=== PATIENT | male | born 1945 | race American Indian/Alaskan Native ===

== ENCOUNTER 2021-03-08 08:54 | Observation (INO) | payer MEDICARE ==
--- NOTE | 2021-03-08 09:31 | XRay Report ---
CHEST 1 VIEW 03/08/2021 8:22 AM INDICATION / CLINICAL INFORMATION: Dyspnea. COMPARISON: 12/27/2020 FINDINGS: SUPPORT DEVICES: None. HEART / MEDIASTINUM: Stable. LUNGS / PLEURA: There is increasing size and number of pulmonary nodules/masses in the right lung. Th ere is a stable small right pleural effusion. No pneumothorax. ADDITIONAL FINDINGS: No significant additional findings. IMPRESSION: 1. Increasing size and number of masses/nodules in the right lung. Signer Name: Mina Reza MD Signed: 03/08/2021 9:26 AM Workstation Name: [id number]
[2021-03-08 09:48] LABS: Basophils % (Auto) 0.3 % (0.0-1.8); Eosinophils % (Auto) 1.5 % (0.0-4.3); Hematocrit 25.9 % (35.5-45.6); Lymphocytes # (Auto) 0.9 K/mm3 (1.2-5.4); Lymphocytes % (Auto) 27.5 % (13.4-35.0); Mean Corpuscular HGB Conc 35 % (32-34); Mean Corpuscular Volume 96 fl (84-94); Monocytes # (Auto) 0.3 K/mm3 (0.0-0.8); Monocytes % (Auto) 9.6 % (0.0-7.3); Red Blood Count 2.68 M/mm3 (3.65-5.03); Red Cell Distribution Width 18.2 % (13.2-15.2)
[2021-03-08 09:54] LABS: Platelet Count 93 K/mm3 (140-440)
[2021-03-08 09:59] LABS: INR 1.27 (0.87-1.13)
[2021-03-08 10:14] LABS: Alanine Aminotransferase 9 units/L (7-56); BUN/Creatinine Ratio 14; Blood Urea Nitrogen 30 mg/dL (9-20); Calcium 8.5 mg/dL (8.4-10.2); Hemolysis Index 4
[2021-03-08] MEDS ORDERED: amLODIPine 10 MG TAB PO STA (10:19)
[2021-03-08] MEDS ORDERED: ASPIRIN EC 81 MG TAB PO STA (10:19)
[2021-03-08] MEDS ORDERED: hydrALAZINE 25 MG TAB PO STA (10:19)
[2021-03-08] MEDS ORDERED: carvediloL 6.25 MG TAB PO STA (10:19)
[2021-03-08] MEDS ORDERED: ALBUTEROL 2.5 MG/3 ML NEBU IH ONE (10:20)
[2021-03-08] MEDS ORDERED: IPRATROPIUM 0.02% NEBU 2.5 ML IH ONE (10:20)
[2021-03-08] MEDS ORDERED: methylPREDNISolone Sod Succinate 125 MG/2 ML INJ IV ONE (10:20)
[2021-03-08] MEDS ORDERED: FUROSEMIDE 40 MG/4 ML INJ IV ONE (10:22)
[2021-03-08] MEDS ORDERED: ASPIRIN 81 MG TAB CHEW PO ONE (10:24)
--- NOTE | 2021-03-08 10:24 | Emergency Department Report ---
ED General Adult HPI - General Chief complaint: Dyspnea/Respdistress Stated complaint: JOHN PUI?: No Time Seen by Provider: 03/08/21 08:58 Source: patient, EMS (Verbal report received from emergency medical services. EMS documentation not available at time of chart dictation ), RN notes reviewed, old records reviewed Mode of arrival: Stretcher Limitations: Physical Limitation - History of Present Illness Initial comments: The patient is a 76-year-old gentleman. His past medical history includes congestive heart failure, EF of 10 to 50%, COPD, hypertension, HIV, prostate cancer. As per review of recent documentation, from December of this year, he is on home oxygen. The patient presents to the ER today with complaints of shortness of breath, lower extremity swelling. He denies headache, neck pain, chest pain, abdominal pain. The patient denies Covid symptomatology. He has not received a Covid vaccination. He endorses black stool. He does not take blood thinning medications. This patient presented with very similar symptoms in December of this year. At that time, he had a lower extremity DVT study which was negative for DVT, and nuclear medicine study which was negative/low probability for pulmonary embolism, a cardiac stress test which was negative for ischemia, and demonstrated cardiomyopathy. The patient was ruled out for COVID-19, was found to have elevated troponin, elevated proBNP, and renal insufficiency with a creatinine of 2.2. The patient endorses compliance with his medications. He was also found to have tricuspid regurg, pulmonary hypertension, anemia, thrombocytopenia, as well as renal insufficiency. He was discharged with Aldactone, Norvasc, hydralazine, carvedilol, aspirin, Lasix, and isosorbide. -: Gradual, days(s) (Patient reports symptoms started yesterday) Location: left, right, lower extremity Consistency: constant Improves with: rest Worsens with: movement - Related Data Home Medications Medication Instructions Recorded Confirmed Last Taken Albuterol Mdi (or & Nicu Only) 2 puff PO Q3HR PRN 03/08/21 03/08/21 Unknown [ProAir HFA Inhaler] AtorvaSTATin [Lipitor] 40 mg PO QHS 03/08/21 03/08/21 Unknown Bictegrav/Emtricit/Tenofov Ala 1 tab PO DAILY 03/08/21 03/08/21 Unknown [Biktarvy 50-200-25 mg (Nf)] Dolutegravir [Tivicay] 1 tab PO DAILY 03/08/21 03/08/21 Unknown lamiVUDine [Epivir] 300 mg PO QDAY 03/08/21 03/08/21 Unknown Previous Rx's Medication Instructions Recorded Last Taken Type Aspirin EC [Halfprin EC] 81 mg PO DAILY #60 tablet 12/31/20 Unknown Rx Furosemide [Lasix TAB] 60 mg PO QDAY #30 tablet 12/31/20 Unknown Rx Isosorbide Dinitrate [Isordil] 20 mg PO Q8HR #90 tablet 12/31/20 Unknown Rx Spironolactone [Aldactone] 25 mg PO QDAY #30 tablet 12/31/20 Unknown Rx amLODIPine 10 mg PO DAILY #30 tablet 12/31/20 Unknown Rx carvediloL [Coreg] 6.25 mg PO BID #60 tablet 12/31/20 Unknown Rx hydrALAZINE [Apresoline TAB] 25 mg PO Q8HR #90 tablet 12/31/20 Unknown Rx Allergies Allergy/AdvReac Type Severity Reaction Status Date / Time No Known Allergies Allergy Unverified 12/26/20 09:44 ED Review of Systems ROS: Stated complaint: JOHN Other details as noted in HPI Constitutional: malaise, weakness, other (Denies loss of taste and smell) Eyes: denies: eye discharge ENT: congestion Respiratory: shortness of breath, SOB with exertion, SOB at rest. denies: cough Cardiovascular: as per HPI, edema. denies: chest pain Gastrointestinal: denies: abdominal pain, nausea, vomiting Genitourinary: denies: dysuria Musculoskeletal: myalgia Neurological: weakness Hematological/Lymphatic: denies: easy bleeding ED Past Medical Hx - Social History Smoking Status: Current Every Day Smoker - Medications Home Medications: Home Medications Medication Instructions Recorded Confirmed Last Taken Type Aspirin EC [Halfprin EC] 81 mg PO DAILY #60 tablet 12/31/20 Unknown Rx Furosemide [Lasix TAB] 60 mg PO QDAY #30 tablet 12/31/20 Unknown Rx Isosorbide Dinitrate [Isordil] 20 mg PO Q8HR #90 tablet 12/31/20 Unknown Rx Spironolactone [Aldactone] 25 mg PO QDAY #30 tablet 12/31/20 Unknown Rx amLODIPine 10 mg PO DAILY #30 tablet 12/31/20 Unknown Rx carvediloL [Coreg] 6.25 mg PO BID #60 tablet 12/31/20 Unknown Rx hydrALAZINE [Apresoline TAB] 25 mg PO Q8HR #90 tablet 12/31/20 Unknown Rx Albuterol Mdi (or & Nicu Only) 2 puff PO Q3HR PRN 03/08/21 03/08/21 Unknown History [ProAir HFA Inhaler] AtorvaSTATin [Lipitor] 40 mg PO QHS 03/08/21 03/08/21 Unknown History Bictegrav/Emtricit/Tenofov Ala 1 tab PO DAILY 03/08/21 03/08/21 Unknown History [Biktarvy 50-200-25 mg (Nf)] Dolutegravir [Tivicay] 1 tab PO DAILY 03/08/21 03/08/21 Unknown History lamiVUDine [Epivir] 300 mg PO QDAY 03/08/21 03/08/21 Unknown History ED Physical Exam - General Limitations: Physical Limitation General appearance: alert, in no apparent distress - Head Head exam: Present: atraumatic, normocephalic - Eye Eye exam: Present: normal appearance, EOMI. Absent: nystagmus - ENT ENT exam: Present: normal exam, normal orophraynx, mucous membranes moist, normal external ear exam - Neck Neck exam: Present: normal inspection, full ROM. Absent: tenderness, meningismus - Respiratory Respiratory exam: Present: rales, rhonchi. Absent: stridor - Cardiovascular Cardiovascular Exam: Present: regular rate, normal rhythm, normal heart sounds, JVD. Absent: bradycardia, tachycardia, irregular rhythm, systolic murmur, diastolic murmur, rubs, gallop - GI/Abdominal GI/Abdominal exam: Present: soft. Absent: distended, tenderness, guarding, rebound, rigid, pulsatile mass - Rectal Rectal exam: Present: normal inspection, normal rectal tone, heme (-) stool, other (Chaperoned by Tequila Bailey) - Extremities Exam Extremities exam: Present: normal inspection, full ROM, pedal edema (3+ edema in the bilateral lower extremities), other (2+ pulses noted in the bilateral upper and lower extremities. There is no palpable cord. negative Homans sign. Muscular compartments are soft. The pelvis is stable.). Absent: calf tenderness - Back Exam Back exam: Present: normal inspection, full ROM. Absent: tenderness, CVA tenderness (R), CVA tenderness (L), paraspinal tenderness, vertebral tenderness - Neurological Exam Neurological exam: Present: alert, other (No facial droop. Tongue midline. Extraocular movements intact bilaterally. Facial sensation intact to light t ouch in V1, V2, V3 distribution bilaterally. 5 and a 5 strength in 4 extremities. Sensation intact to light touch in 4 extremities.) - Psychiatric Psychiatric exam: Present: normal affect, normal mood - Skin Skin exam: Present: warm, dry, intact, normal color. Absent: rash ED Course Vital Signs 03/08/21 03/08/21 03/08/21 09:08 09:15 09:30 Temperature 97.7 F Pulse Rate 96 H 97 H 93 H Respiratory 23 27 H 23 Rate Blood Pressure 157/89 Blood Pressure 157/89 [Right] O2 Sat by Pulse 93 93 93 Oximetry 03/08/21 03/08/21 03/08/21 09:31 09:45 10:01 Temperature Pulse Rate 100 H 101 H 114 H Respiratory 24 25 H 35 H Rate Blood Pressure 157/89 157/89 208/128 Blood Pressure [Right] O2 Sat by Pulse 95 93 92 Oximetry - Reevaluation(s) Reevaluation #1: 03/08/21 10:49 Pulmonary nodules reviewed and appreciated. We will defer to the inpatient team for further work-up and evaluate these. Do not have a high suspicion for Covid at this time. ED Medical Decision Making - Lab Data Result diagrams: 03/08/21 09:17 03/08/21 09:17 Vital Signs 03/08/21 03/08/21 03/08/21 09:08 09:15 09:30 Temperature 97.7 F Pulse Rate 96 H 97 H 93 H Respiratory 23 27 H 23 Rate Blood Pressure 157/89 Blood Pressure 157/89 [Right] O2 Sat by Pulse 93 93 93 Oximetry 03/08/21 03/08/21 03/08/21 09:31 09:45 10:01 Temperature Pulse Rate 100 H 101 H 114 H Respiratory 24 25 H 35 H Rate Blood Pressure 157/89 157/89 208/128 Blood Pressure [Right] O2 Sat by Pulse 95 93 92 Oximetry Lab Results 03/08/21 03/08/21 03/08/21 Range/Units 09:17 09:17 09:17 WBC 3.1 L (4.5-11.0) K/mm3 RBC 2.68 L (3.65-5.03) M/mm3 Hgb 9.0 L (11.8-15.2) gm/dl Hct 25.9 L (35.5-45.6) % MCV 96 H (84-94) fl MCH 33 H (28-32) pg MCHC 35 H (32-34) % RDW 18.2 H (13.2-15.2) % Plt Count 93 L (140-440) K/mm3 Lymph % (Auto) 27.5 (13.4-35.0) % [place] % (Auto) 9.6 H (0.0-7.3) % Eos % (Auto) 1.5 (0.0-4.3) % Baso % (Auto) 0.3 (0.0-1.8) % Lymph # (Auto) 0.9 L (1.2-5.4) K/mm3 [place] # (Auto) 0.3 (0.0-0.8) K/mm3 Eos # (Auto) 0.0 (0.0-0.4) K/mm3 Baso # (Auto) 0.0 (0.0-0.1) K/mm3 Seg Neutrophils % 61.1 (40.0-70.0) % Seg Neutrophils # 1.9 (1.8-7.7) K/mm3 PT 16.4 H (12.2-14.9) Sec. INR 1.27 H (0.87-1.13) Sodium 139 (137-145) mmol/L Potassium 4.5 (3.6-5.0) mmol/L Chloride 108.6 H (98-107) mmol/L Carbon Dioxide 20 L (22-30) mmol/L Anion Gap 15 mmol/L BUN 30 H (9-20) mg/dL Creatinine 2.1 H (0.8-1.3) mg/dL Estimated GFR 38 ml/min BUN/Creatinine Ratio 14 % Glucose 108 H (75-100) mg/dL Lactic Acid (0.7-2.0) mmol/L Calcium 8.5 (8.4-10.2) mg/dL Magnesium 1.90 (1.7-2.3) mg/dL Total Bilirubin 0.50 (0.1-1.2) mg/dL AST 24 (5-40) units/L ALT 9 (7-56) units/L Alkaline Phosphatase 93 (35-129) units/L Total Creatine Kinase 125 (55-170) units/L Troponin T 0.127 H* (0.00-0.029) ng/mL Total Protein 6.4 (6.3-8.2) g/dL Albumin 3.0 L (3.9-5) g/dL Albumin/Globulin Ratio 0.9 % Triglycerides 86 (2-149) mg/dL Cholesterol 137 (50-199) mg/dL LDL Cholesterol Direct 81 (50-130) mg/dL HDL Cholesterol 40 (40-59) mg/dL Cholesterol/HDL Ratio 3.42 % /02/21 Range/Units 09:17 WBC (4.5-11.0) K/mm3 RBC (3.65-5.03) M/mm3 Hgb (11.8-15.2) gm/dl Hct (35.5-45.6) % MCV (84-94) fl MCH (28-32) pg MCHC (32-34) % RDW (13.2-15.2) % Plt Count (140-440) K/mm3 Lymph % (Auto) (13.4-35.0) % [place] % (Auto) (0.0-7.3) % Eos % (Auto) (0.0-4.3) % Baso % (Auto) (0.0-1.8) % Lymph # (Auto) (1.2-5.4) K/mm3 [place] # (Auto) (0.0-0.8) K/mm3 Eos # (Auto) (0.0-0.4) K/mm3 Baso # (Auto) (0.0-0.1) K/mm3 Seg Neutrophils % (40.0-70.0) % Seg Neutrophils # (1.8-7.7) K/mm3 PT (12.2-14.9) Sec. INR (0.87-1.13) Sodium (137-145) mmol/L Potassium (3.6-5.0) mmol/L Chloride (98-107) mmol/L Carbon Dioxide (22-30) mmol/L Anion Gap mmol/L BUN (9-20) mg/dL Creatinine (0.8-1.3) mg/dL Estimated GFR ml/min BUN/Creatinine Ratio % Glucose (75-100) mg/dL Lactic Acid 1.30 (0.7-2.0) mmol/L Calcium (8.4-10.2) mg/dL Magnesium (1.7-2.3) mg/dL Total Bilirubin (0.1-1.2) mg/dL AST (5-40) units/L ALT (7-56) units/L Alkaline Phosphatase (35-129) units/L Total Creatine Kinase (55-170) units/L Troponin T (0.00-0.029) ng/mL Total Protein (6.3-8.2) g/dL Albumin (3.9-5) g/dL Albumin/Globulin Ratio % Triglycerides (2-149) mg/dL Cholesterol (50-199) mg/dL LDL Cholesterol Direct (50-130) mg/dL HDL Cholesterol (40-59) mg/dL Cholesterol/HDL Ratio % - EKG Data -: EKG Interpreted by De EKG shows normal: sinus rhythm Rate: normal - EKG Data 03/08/21 10:43 The EKG today is interpreted at 09: 30 3 AM Sinus rhythm, 99 bpm, with a normal P wave axis, and a normal axis. QTC prolonged, poor R wave progression, PVC. Motion artifact. Abnormal EKG. Not a STEMI. Unchanged from prior EKG 12/26/2020 - Radiology Data Radiology results: pending, report reviewed, image reviewed CHEST 1 VIEW 03/08/2021 8:22 AM INDICATION / CLINICAL INFORMATION: Dyspnea. COMPARISON: 12/27/2020 FINDINGS: SUPPORT DEVICES: None. HEART / MEDIASTINUM: Stable. LUNGS / PLEURA: There is increasing size and number of pulmonary nodules/masses in the right lung. There is a stable small right pleural effusion. No pneumothorax. ADDITIONAL FINDINGS: No significant additional findings. IMPRESSION: 1. Increasing size and number of masses/nodules in the right lung. Signer Name: Mina Reza MD Signed: 03/08/2021 8:26 AM Workstation Name: [id number] - Medical Decision Making Differential diagnosis, including but not limited to: CHF exacerbation, COPD exacerbation, pulmonary hypertension, cardiorenal syndrome, hypertensive cardiomyopathy, hypertensive urgency Assessment and plan: 76-year-old gentleman, presenting with shortness of breath, lower extremity edema, JVD, market hypertension, likely presenting with decompensated exacerbation of his chronic medical issues. Place patient on monitor, administer supplemental oxygen, titrate to O2 sat greater than 92%, start high-dose albuterol, Atrovent, steroids, Lasix, continue home medications. Elevated troponin is chronic. This is likely a type II troponin leak. Anemia at baseline, as is thrombocytopenia. There may be a component of anemia and thrombocytopenia secondary to chronic renal insufficiency, anemia of chronic disease, or underlying HIV. Patient meets criteria for admission and hospitalization secondary to the aforementioned. Hospital physician, Dr. Casie Burrell to admit to IMS On rectal examination, stool is brown, and is guaiac negative. Critical Care Time: Yes Critical care time in (mins) excluding proc time.: 35 Critical care attestation.: If time is entered above; I have spent that time in minutes in the direct care of this critically ill patient, excluding procedure time. ED Disposition Clinical Impression: CHF exacerbation, COPD exacerbation, Shortness of breath, Renal insufficiency, Hypertensive urgency Disposition: 09 OP ADMIT IP TO THIS HOSP Is pt being admited?: Yes Does the pt Need Aspirin: Yes Condition: Good Instructions: Chronic Obstructive Pulmonary Disease (ED)
[2021-03-08] MEDS ORDERED: SPIRONOLACTONE 25 MG TAB PO SCH (10:30)
[2021-03-08 10:41] LABS: Chol/HDL Ratio 3.42 %; HDL Cholesterol 40 mg/dL (40-59); LDL Cholesterol,Direct 81 mg/dL (50-130)
[2021-03-08] MEDS ORDERED: ALBUTEROL 8.5 GM MDI INHALATION IH PRN (16:05)
[2021-03-08] MEDS ORDERED: MORPHINE 2 MG/1 ML INJ IV PRN (16:29)
[2021-03-08] MEDS ORDERED: METOCLOPRAMIDE 10 MG/2 ML INJ IV PRN (16:29)
[2021-03-08] MEDS ORDERED: HYDROmorphone 1 MG/1 ML INJ IV PRN (16:29)
[2021-03-08] MEDS ORDERED: ONDANSETRON 4 MG/2 ML INJ IV PRN (16:29)
[2021-03-08] MEDS ORDERED: ACETAMINOPHEN 325 MG TAB PO PRN (16:29)
[2021-03-08] MEDS ORDERED: oxyCODONE /ACETAMINOPHEN 5-325MG TAB PO PRN (16:29)
[2021-03-08] MEDS ORDERED: NON-FORMULARY EACH (Bictegrav/Emtricit/Tenofov Ala 1 EACH Tablet) PO SCH (16:30)
[2021-03-08] MEDS ORDERED: LAMIVUDINE 300 MG PO SCH (16:30)
--- NOTE | 2021-03-08 16:44 | History and Physical Report ---
History of Present Illness Date of examination: 03/08/21 Date of admission: 03/08/21 10:48 History of present illness: - History of Present Illness Initial comments: The patient is a 76-year-old gentleman. His past medical history includes congestive heart failure, EF of 10 to 50%, COPD, hypertension, HIV, prostate cancer. As per review of recent documentation, from December of this year, he is on home oxygen. The patient presents to the ER today with complaints of shortness of breath, lower extremity swelling. He denies headache, neck pain, chest pain, abdominal pain. The patient denies Covid symptomatology. He has not received a Covid vaccination. He endorses black stool. He does not take blood thinning medications. This patient presented with very similar symptoms in December of this year. At that time, he had a lower extremity DVT study which was negative for DVT, and nuclear medicine study which was negative/low probability for pulmonary embolism, a cardiac stress test which was negative for ischemia, and demonstrated cardiomyopathy. The patient was ruled out for COVID-19, was found to have elevated troponin, elevated proBNP, and renal insufficiency with a creatinine of 2.2. The patient endorses compliance with his medications. He was also found to have tricuspid regurg, pulmonary hypertension, anemia, thrombocytopenia, as well as renal insufficiency. He was discharged with Aldactone, Norvasc, hydralazine, carvedilol, aspirin, Lasix, and isosorbide. -: Gradual, days(s) (Patient reports symptoms started yesterday) Location: left, right, lower extremity Consistency: constant Improves with: rest Worsens with: movement - Related Data Home Medications Medication Instructions Recorded Confirmed Last Taken Albuterol Mdi (or & Nicu Only) 2 puff PO Q3HR PRN 03/08/21 03/08/21 Unknown [ProAir HFA Inhaler] AtorvaSTATin [Lipitor] 40 mg PO QHS 03/08/21 03/08/21 Unknown Bictegrav/Emtricit/Tenofov Ala 1 tab PO DAILY 03/08/21 03/08/21 Unknown [Biktarvy 50-200-25 mg (Nf)] Dolutegravir [Tivicay] 1 tab PO DAILY 03/08/21 03/08/21 Unknown lamiVUDine [Epivir] 300 mg PO QDAY 03/08/21 03/08/21 Unknown Previous Rx's Medication Instructions Recorded Last Taken Type Aspirin EC [Halfprin EC] 81 mg PO DAILY #60 tablet 12/31/20 Unknown Rx Furosemide [Lasix TAB] 60 mg PO QDAY #30 tablet 12/31/20 Unknown Rx Isosorbide Dinitrate [Isordil] 20 mg PO Q8HR #90 tablet 12/31/20 Unknown Rx Spironolactone [Aldactone] 25 mg PO QDAY #30 tablet 12/31/20 Unknown Rx amLODIPine 10 mg PO DAILY #30 tablet 12/31/20 Unknown Rx carvediloL [Coreg] 6.25 mg PO BID #60 tablet 12/31/20 Unknown Rx hydrALAZINE [Apresoline TAB] 25 mg PO Q8HR #90 tablet 12/31/20 Unknown Rx Allergies Allergy/AdvReac Type Severity Reaction Status Date / Time No Known Allergies Allergy Unverified 12/26/20 09:44 ED Review of Systems ROS: Stated complaint: JOHN Other details as noted in HPI Constitutional: malaise, weakness, other (Denies loss of taste and smell) Eyes: denies: eye discharge ENT: congestion Respiratory: shortness of breath, SOB with exertion, SOB at rest. denies: cough Cardiovascular: as per HPI, edema. denies: chest pain Gastrointestinal: denies: abdominal pain, nausea, vomiting Genitourinary: denies: dysuria Musculoskeletal: myalgia Neurological: weakness Hematological/Lymphatic: denies: easy bleeding ED Past Medical Hx - Social History Smoking Status: Current Every Day Smoker - Medications Home Medications: Home Medications Medication Instructions Recorded Confirmed Last Taken Type Aspirin EC [Halfprin EC] 81 mg PO DAILY #60 tablet 12/31/20 Unknown Rx Furosemide [Lasix TAB] 60 mg PO QDAY #30 tablet 12/31/20 Unknown Rx Isosorbide Dinitrate [Isordil] 20 mg PO Q8HR #90 tablet 12/31/20 Unknown Rx Spironolactone [Aldactone] 25 mg PO QDAY #30 tablet 12/31/20 Unknown Rx amLODIPine 10 mg PO DAILY #30 tablet 12/31/20 Unknown Rx carvediloL [Coreg] 6.25 mg PO BID #60 tablet 12/31/20 Unknown Rx hydrALAZINE [Apresoline TAB] 25 mg PO Q8HR #90 tablet 12/31/20 Unknown Rx Albuterol Mdi (or & Nicu Only) 2 puff PO Q3HR PRN 03/08/21 03/08/21 Unknown History [ProAir HFA Inhaler] AtorvaSTATin [Lipitor] 40 mg PO QHS 03/08/21 03/08/21 Unknown History Bictegrav/Emtricit/Tenofov Ala 1 tab PO DAILY 03/08/21 03/08/21 Unknown History [Biktarvy 50-200-25 mg (Nf)] Dolutegravir [Tivicay] 1 tab PO DAILY 03/08/21 03/08/21 Unknown History lamiVUDine [Epivir] 300 mg PO QDAY 03/08/21 03/08/21 Unknown History Medications and Allergies Allergies Allergy/AdvReac Type Severity Reaction Status Date / Time No Known Allergies Allergy Unverified 12/26/20 09:44 Home Medications Medication Instructions Recorded Confirmed Last Taken Type Aspirin EC [Halfprin EC] 81 mg PO DAILY #60 tablet 12/31/20 03/08/21 Unknown Rx Furosemide [Lasix TAB] 60 mg PO QDAY #30 tablet 12/31/20 03/08/21 Unknown Rx Isosorbide Dinitrate [Isordil] 20 mg PO Q8HR #90 tablet 12/31/20 03/08/21 Unknown Rx Spironolactone [Aldactone] 25 mg PO QDAY #30 tablet 12/31/20 03/08/21 Unknown Rx amLODIPine 10 mg PO DAILY #30 tablet 12/31/20 03/08/21 Unknown Rx carvediloL [Coreg] 6.25 mg PO BID #60 tablet 12/31/20 03/08/21 Unknown Rx hydrALAZINE [Apresoline TAB] 25 mg PO Q8HR #90 tablet 12/31/20 03/08/21 Unknown Rx Albuterol Mdi (or & Nicu Only) 2 puff PO Q3HR PRN 03/08/21 03/08/21 Unknown History [ProAir HFA Inhaler] AtorvaSTATin [Lipitor] 40 mg PO QHS 03/08/21 03/08/21 Unknown History Bictegrav/Emtricit/Tenofov Ala 1 tab PO DAILY 03/08/21 03/08/21 Unknown History [Biktarvy 50-200-25 mg (Nf)] Dolutegravir [Tivicay] 1 tab PO DAILY 03/08/21 03/08/21 Unknown History lamiVUDine [Epivir] 300 mg PO QDAY 03/08/21 03/08/21 Unknown History Active Meds: Active Medications Albuterol (Albuterol 8.5 Gm Mdi Inhalation) 2 puff IH Q3HR PRN PRN Reason: Shortness Of Breath Atorvastatin Calcium (Atorvastatin 40 Mg Tab) 40 mg PO QHS POLO Furosemide (Furosemide 40 Mg Tab) 60 mg PO QDAY POLO Isosorbide Dinitrate (Isosorbide Dinitrate 20 Mg Tab) 20 mg PO Q8HR POLO Miscellaneous Medication (Bictegrav/Emtricit/Tenofov Ala) 1 tab PO DAILY POLO Miscellaneous Medication (Lamivudine [Epivir]) 300 mg PO QDAY POLO Exam - Constitutional Vitals: Temp Pulse Resp BP Pulse Ox 97.7 F 93 H 15 154/93 99 03/08/21 09:30 03/08/21 12:45 03/08/21 12:45 03/08/21 12:45 03/08/21 16:09 HEART Score - HEART Score Troponin: Troponin T 0.127 ng/mL (0.00-0.029) H* 03/08/21 09:17 Results - Labs CBC & Chem 7: 03/09/21 05:29 03/09/21 05:29 Labs: Laboratory Last Values WBC 3.1 K/mm3 (4.5-11.0) L 03/08/21 09:17 RBC 2.68 M/mm3 (3.65-5.03) L 03/08/21 09:17 Hgb 9.0 gm/dl (11.8-15.2) L 03/08/21 09:17 Hct 25.9 % (35.5-45.6) L 03/08/21 09:17 MCV 96 fl (84-94) H 03/08/21 09:17 MCH 33 pg (28-32) H 03/08/21 09:17 MCHC 35 % (32-34) H 03/08/21 09:17 RDW 18.2 % (13.2-15.2) H 03/08/21 09:17 Plt Count 93 K/mm3 (140-440) L 03/08/21 09:17 Lymph % (Auto) 27.5 % (13.4-35.0) 03/08/21 09:17 [place] % (Auto) 9.6 % (0.0-7.3) H 03/08/21 09:17 Eos % (Auto) 1.5 % (0.0-4.3) 03/08/21 09:17 Baso % (Auto) 0.3 % (0.0-1.8) 03/08/21 09:17 Lymph # (Auto) 0.9 K/mm3 (1.2-5.4) L 03/08/21 09:17 [place] # (Auto) 0.3 K/mm3 (0.0-0.8) 03/08/21 09:17 Eos # (Auto) 0.0 K/mm3 (0.0-0.4) 03/08/21 09:17 Baso # (Auto) 0.0 K/mm3 (0.0-0.1) 03/08/21 09:17 Seg Neutrophils % 61.1 % (40.0-70.0) 03/08/21 09:17 Seg Neutrophils # 1.9 K/mm3 (1.8-7.7) 03/08/21 09:17 PT 16.4 Sec. (12.2-14.9) H 03/08/21 09:17 INR 1.27 (0.87-1.13) H 03/08/21 09:17 Sodium 139 mmol/L (137-145) 03/08/21 09:17 Potassium 4.5 mmol/L (3.6-5.0) 03/08/21 09:17 Chloride 108.6 mmol/L (98-107) H 03/08/21 09:17 Carbon Dioxide 20 mmol/L (22-30) L 03/08/21 09:17 Anion Gap 15 mmol/L 03/08/21 09:17 BUN 30 mg/dL (9-20) H 03/08/21 09:17 Creatinine 2.1 mg/dL (0.8-1.3) H 03/08/21 09:17 Estimated GFR 38 ml/min 03/08/21 09:17 BUN/Creatinine Ratio 14 % 03/08/21 09:17 Glucose 108 mg/dL (75-100) H 03/08/21 09:17 Lactic Acid 1.30 mmol/L (0.7-2.0) 03/08/21 09:17 Calcium 8.5 mg/dL (8.4-10.2) 03/08/21 09:17 Magnesium 1.90 mg/dL (1.7-2.3) 03/08/21 09:17 Total Bilirubin 0.50 mg/dL (0.1-1.2) 03/08/21 09:17 AST 24 units/L (5-40) 03/08/21 09:17 ALT 9 units/L (7-56) 03/08/21 09:17 Alkaline Phosphatase 93 units/L (35-129) 03/08/21 09:17 Total Creatine Kinase 125 units/L (55-170) 03/08/21 09:17 Troponin T 0.127 ng/mL (0.00-0.029) H* 03/08/21 09:17 NT-Pro-B Natriuret Pep > 97245 pg/mL (0-900) H 03/08/21 09:17 Total Protein 6.4 g/dL (6.3-8.2) 03/08/21 09:17 Albumin 3.0 g/dL (3.9-5) L 03/08/21 09:17 Albumin/Globulin Ratio 0.9 % 03/08/21 09:17 Triglycerides 86 mg/dL (2-149) 03/08/21 09:17 Cholesterol 137 mg/dL (50-199) 03/08/21 09:17 LDL Cholesterol Direct 81 mg/dL (50-130) 03/08/21 09:17 HDL Cholesterol 40 mg/dL (40-59) 03/08/21 09:17 Cholesterol/HDL Ratio 3.42 % 03/08/21 09:17 - Imaging and Cardiology Imaging and Cardiology: Chest x-ray Increasing size and number of masses/nodules in the right lung Reyes/IV: Voiding Method Urinal Assessment and Plan Advance Directives: Yes (Full code) VTE prophylaxis?: Chemical Plan of care discussed with patient/family: Yes - Patient Problems (1) Hypertensive emergency Current Visit: Yes Status: Acute Plan to address problem: Adjust Bp meds IV Hydealazine prn (2) CHF exacerbation Current Visit: Yes Status: Acute Qualifiers: Heart failure type: combined systolic and diastolic Qualified Code(s): I50.43 - Acute on chronic combined systolic (congestive) and diastolic (congestive) heart failure Plan to address problem: IV Lasix ECHO for EF (3) COPD exacerbation Current Visit: Yes Status: Acute Plan to address problem: Duonebs RTC and prn (4) DVT prophylaxis Current Visit: Yes Status: Acute Plan to address problem: On Heparin and GI prophylaxis
[2021-03-08] MEDS: FUROSEMIDE 40 MG/4 ML INJ IV SCH (17:22)
[2021-03-08] MEDS: POTASSIUM CHLORIDE ER 20 MEQ TAB PO SCH ×2 (17:22→22:34)
[2021-03-08] MEDS: ISOSORBIDE DINITRATE 20 MG TAB PO SCH ×2 (17:26→22:17)
[2021-03-08 19:01] LABS: Creatine Kinase MB 6.4 ng/mL (0.0-4.0)
--- NOTE | 2021-03-08 20:17 | Cat Scan Report ---
CT CHEST WITHOUT CONTRAST INDICATION / CLINICAL INFORMATION: Pulmonary nodules. TECHNIQUE: Axial CT images were obtained through the chest without contrast. All CT scans at this location are p erformed using CT dose reduction for ALARA by means of automated exposure control. COMPARISON: None available. FINDINGS: There are multiple bilateral pulmonary nodules. Within the right middle lobe there is a 2.7 cm nodule . Pleural thickening with bilateral pleural effusions. Fluid along the fissures is also identified. A dditional nodular density in the right lower lung measures 3.4 cm. Enlarged mediastinal pulmonary nod ule suggested. The heart is enlarged with small pericardial effusion. Left renal cyst is suggested. E xamination is limited in the upper abdomen. Noncontrast technique. IMPRESSION: 1. Nodular densities/masses suggesting bilateral lungs. The nodular area of opacity in the right lowe r lung may represent fluid collection however right upper lung nodular density is concerning for shikha gnancy. Bilateral pleural effusions with pleural thickening. 2. Cardiomegaly with pericardial effusion. 3. Mildly prominent mediastinal nodes. 4. Bilateral pleural effusions. Signer Name: Raul Saini MD Signed: 03/08/2021 8:13 PM Workstation Name: [id number]
[2021-03-08 21:01] LABS: Bilirubin,Urine NEG (Negative); Blood,Urine SM (Negative); Color,Urine Straw (Yellow); Urobilinogen,Urine < 2.0 mg/dL (<2.0)
[2021-03-08] MEDS: VALSARTAN 160MG TAB PO SCH (22:34)
[2021-03-09 00:59] LABS: Creatine Kinase MB 5.8 ng/mL (0.0-4.0)
[2021-03-09] MEDS: FUROSEMIDE 40 MG/4 ML INJ IV SCH ×2 (06:18→17:24)
[2021-03-09] MEDS: ISOSORBIDE DINITRATE 20 MG TAB PO SCH ×2 (06:19→16:17)
[2021-03-09 06:20] LABS: Albumin 2.9 g/dL (3.9-5); Calcium 8.4 mg/dL (8.4-10.2)
[2021-03-09 06:22] LABS: Basophils % (Auto) 0.1 % (0.0-1.8); Hematocrit 23.5 % (35.5-45.6); Lymphocytes # (Auto) 0.7 K/mm3 (1.2-5.4); Lymphocytes % (Auto) 17.9 % (13.4-35.0); Mean Corpuscular HGB Conc 34 % (32-34); Mean Corpuscular Volume 95 fl (84-94); Monocytes # (Auto) 0.4 K/mm3 (0.0-0.8); Red Blood Count 2.47 M/mm3 (3.65-5.03); Red Cell Distribution Width 18.7 % (13.2-15.2)
[2021-03-09 06:29] LABS: Platelet Count 94 K/mm3 (140-440)
[2021-03-09] MEDS: VALSARTAN 160MG TAB PO SCH (09:32)
[2021-03-09] MEDS: POTASSIUM CHLORIDE ER 20 MEQ TAB PO SCH (09:32)
[2021-03-09] MEDS ORDERED: DOLUTEGRAVIR 50 MG TAB PO SCH (10:00)
[2021-03-09] MEDS ORDERED: FUROSEMIDE 40 MG TAB PO SCH (10:00)
[2021-03-09 10:20] LABS: Creatine Kinase MB 5.3 ng/mL (0.0-4.0)
[2021-03-09] MEDS ORDERED: TENOFOVIR 300 MG TAB PO SCH (12:00)
[2021-03-09] MEDS ORDERED: EMTRICITABINE 200 MG CAP PO SCH (12:00)
--- NOTE | 2021-03-09 17:55 | Electrocardiograph Report ---
[facility] Test Date: 2021-03-08 Test Time: 09:33:56 Pat Name: JERRY HOWELL Department: Room: A367 1 Gender: M Dianeticist: LAMBERT : 1945 Requested By: MAGDALENO CAMEJO Order Number: [id number] Reading MD: Arpita Mendez Measurements Intervals [place] Rate: 99 P: 69 NC: 149 QRS: 42 QRSD: 90 T: QT: 370 QTc: 470 Interpretive Statements Sinus rhythm Occasional ventricular premature complexes Compared to ECG 12/26/2020 08:17:37 Ventricular premature complex(es) now present Atrial premature complex(es) no longer present Electronically Signed On 03-09-2021 17:54:40 EDT by Arpita Mendez
--- NOTE | 2021-03-09 18:35 | Progress Note ---
Assessment and Plan - Patient Problems (1) Hypertensive emergency Current Visit: Yes Status: Acute Plan to address problem: Adjust Bp meds IV Hydealazine prn (2) CHF exacerbation Current Visit: Yes Status: Acute Qualifiers: Heart failure type: combined systolic and diastolic Qualified Code(s): I50.43 - Acute on chronic combined systolic (congestive) and diastolic (congestive) heart failure Plan to address problem: IV Lasix ECHO for EF (3) COPD exacerbation Current Visit: Yes Status: Acute Plan to address problem: Duonebs RTC and prn (4) DVT prophylaxis Current Visit: Yes Status: Acute Plan to address problem: On Heparin and GI prophylaxis Subjective Date of service: 03/09/21 Objective - Constitutional Vitals: Vital Signs - 12hr 03/09/21 03/09/21 03/09/21 09:32 10:00 10:22 Pulse Rate 74 Respiratory 20 Rate Blood Pressure 140/71 O2 Sat by Pulse 100 Oximetry 03/09/21 16:17 Pulse Rate 74 Respiratory Rate Blood Pressure 140/71 O2 Sat by Pulse Oximetry General appearance: Present: no acute distress, well-nourished - EENT Eyes: PERRL, EOM intact ENT: hearing intact, clear oral mucosa Ears: bilateral: normal - Neck Neck: supple, normal ROM - Respiratory Respiratory effort: normal Respiratory: bilateral: CTA - Breasts Breasts: normal - Cardiovascular Rhythm: regular Heart Sounds: Present: S1 & S2. Absent: gallop, rub Extremities: pulses intact, No edema, normal color, Full ROM - Gastrointestinal General gastrointestinal: Present: soft, non-tender, non-distended, normal bowel sounds - Genitourinary Male genitourinary: normal - Integumentary Integumentary: clear, warm, dry - Musculoskeletal Musculoskeletal: 1, strength equal bilaterally - Neurologic Neurologic: moves all extremities - Psychiatric Psychiatric: memory intact, appropriate mood/affect, intact judgment & insight - Labs CBC & Chem 7: 03/09/21 05:29 03/09/21 05:29 Labs: Abnormal lab results 03/08/21 03/09/21 03/09/21 Range/Units 18:07 00:19 05:29 WBC 3.9 L (4.5-11.0) K/mm3 RBC 2.47 L (3.65-5.03) M/mm3 Hgb 8.0 L (11.8-15.2) gm/dl Hct 23.5 L (35.5-45.6) % MCV 95 H (84-94) fl RDW 18.7 H (13.2-15.2) % Plt Count 94 L (140-440) K/mm3 [place] % (Auto) 9.0 H (0.0-7.3) % Lymph # (Auto) 0.7 L (1.2-5.4) K/mm3 Seg Neutrophils % 73.0 H (40.0-70.0) % Potassium (3.6-5.0) mmol/L Chloride (98-107) mmol/L Carbon Dioxide (22-30) mmol/L BUN (9-20) mg/dL Creatinine (0.8-1.3) mg/dL Glucose (75-100) mg/dL CK-MB (CK-2) 6.4 H 5.8 H (0.0-4.0) ng/mL CK-MB (CK-2) Rel Index 4.4 H 4.4 H (0-4) Total Protein (6.3-8.2) g/dL Albumin (3.9-5) g/dL 03/09/21 03/09/21 Range/Units 05:29 09:14 WBC (4.5-11.0) K/mm3 RBC (3.65-5.03) M/mm3 Hgb (11.8-15.2) gm/dl Hct (35.5-45.6) % MCV (84-94) fl RDW (13.2-15.2) % Plt Count (140-440) K/mm3 [place] % (Auto) (0.0-7.3) % Lymph # (Auto) (1.2-5.4) K/mm3 Seg Neutrophils % (40.0-70.0) % Potassium 5.4 H (3.6-5.0) mmol/L Chloride 108.4 H (98-107) mmol/L Carbon Dioxide 21 L (22-30) mmol/L BUN 39 H (9-20) mg/dL Creatinine 2.2 H (0.8-1.3) mg/dL Glucose 105 H (75-100) mg/dL CK-MB (CK-2) 5.3 H (0.0-4.0) ng/mL CK-MB (CK-2) Rel Index (0-4) Total Protein 6.0 L (6.3-8.2) g/dL Albumin 2.9 L (3.9-5) g/dL HEART Score - HEART Score Troponin: Troponin T 0.127 ng/mL (0.00-0.029) H* 03/08/21 09:17
--- NOTE | 2021-03-09 18:36 | Discharge Summary ---
Providers - Providers Date of Admission: 03/08/21 10:48 Date of discharge: 03/09/21 Attending physician: KELLI KAMARA Primary care physician: ADE VICK MD Hospitalization Condition: Good Disposition: DC-01 TO HOME OR SELFCARE - Discharge Diagnoses (1) Hypertensive emergency Status: Acute (2) CHF exacerbation Status: Acute Qualifiers: Heart failure type: combined systolic and diastolic Qualified Code(s): I50.43 - Acute on chronic combined systolic (congestive) and diastolic (congestive) heart failure (3) COPD exacerbation Status: Acute (4) DVT prophylaxis Status: Acute Core Measure Documentation - Palliative Care Palliative Care/ Comfort Measures: Not Applicable Exam - Constitutional Vitals: Temp Pulse Resp BP Pulse Ox 98.1 F 74 20 140/71 100 03/09/21 04:57 03/09/21 16:17 03/09/21 10:22 03/09/21 16:17 03/09/21 10:00 Plan Follow up with: ADE VICK MD [Primary Care Provider] - 3-5 Days
[2021-03-09 18:41] VITALS: BP 130/88
== END 2021-03-09 20:00 | disposition home or self-care (01) ==
LOC: ED 08:54 → 3A 10:48
PROVIDERS: ADMIT Internal Medicine; ATTEND Internal Medicine
DX: I16.1 Hypertensive emergency (principal); Z20.822 Contact with and (suspected) exposure to COVID-19; I11.0 Hypertensive heart disease with heart failure; I50.43 Acute on chronic combined systolic (congestive) and diastolic (congestive) heart failure; N28.9 Disorder of kidney and ureter, unspecified; J44.1 Chronic obstructive pulmonary disease with (acute) exacerbation; F17.210 Nicotine dependence, cigarettes, uncomplicated; Z79.82 Long term (current) use of aspirin
CPT/HCPCS: 36415; 71045; 71250; 80053; 80061; 81001; 82140; 82550; 82553; 83036; 83735; 83880; 84484; 85025; 85610; 93005; 96374; 96375; 96376; 99291; 99406; A9270; G0378; J1940; J2930; U0003